=== PATIENT | male | born 1985 | race Caucasian/White ===

== ENCOUNTER → 2021-09-13 | Outpatient (CLI) | payer BC ==
--- NOTE | 2021-09-14 09:54 | MR ---
EXAMINATION TYPE: MR lumbar spine wo con DATE OF EXAM: 09/13/2021 COMPARISON: NONE HISTORY: Low back pain that is mostly on left side for one and a half years TECHNIQUE: Multiplanar, multisequence imaging of the lumbar spine is performed without IV contrast. FINDINGS: Sagittal images of the lumbar spine show vertebral body heights 2 appear satisfactory. Alig nment is stable and straightened. Multilevel disc desiccation and mild disc space narrowing with rela tive sparing of L3-L4 level. The conus medullaris is normal in position and signal ending L1-L2 disc space level. The bone marrow signal intensity is within normal limits. Axial images show T12-L1 and L1-L2 levels to appear within normal limits. Axial images at L2-L3 level show mild broad disc bulge mildly effacing the anterior thecal sac, paten t bilateral neural foramina. Axial images at L3-L4 level show focal central disc protrusion with annular tear minimally effacing a nterior thecal sac. Patent bilateral neural foramina. Axial images at the L4-L5 level shows central disc protrusion mildly effacing the anterior thecal sac and mild facet arthropathy bilaterally. The bilateral neural foramina are patent. Axial images at the L5-S1 level shows central spur disc complex minimally effacing anterior thecal sa c and mild facet arthropathy bilaterally. Patent bilateral neural foramina. The paraspinal muscle bulk is preserved. IMPRESSION: Straightening of lumbar spine with mild multilevel degenerative changes mid to lower lumb ar levels as detailed above.
== END | disposition home or self-care (01) ==
LOC: RADMRIMAIN 21:14
PROVIDERS: ATTEND Family Medicine
DX: M54.16 Radiculopathy, lumbar region (principal)
CPT/HCPCS: 72148

== ENCOUNTER 2022-08-01 05:54 | Day surgery (SDC) | payer BC ==
[2022-07-30 11:28] VITALS: BMI 30.7
[~2022-08-01 05:54] MED LIST: LACTATED RINGERS 1,000 ML IV SCH
[2022-08-01] MEDS ORDERED: LACTATED RINGERS 1,000 ML IV ONE (06:38)
[2022-08-01 06:59] VITALS: TEMP 98.1
[2022-08-01] MEDS ORDERED: PROPOFOL 10 MG/ML 20 ML VIAL IV ONE (07:00)
[2022-08-01] MEDS ORDERED: fentaNYL (PF) 50 MCG/ML 2 ML AMP ONE (07:00)
[2022-08-01] MEDS ORDERED: MIDAZOLAM 2 MG/2 ML VIAL ONE (07:00)
--- NOTE | 2022-08-01 07:25 | P.PCN ---
Date of Procedure: 08/01/22 Procedure(s) Performed: Brief history: Patient is a pleasant 36-year-old white male scheduled for an elective upper endoscopy as well as colonoscopy as a part of evaluation of epigastric pain, early satiety nausea and intermittent diarrhea for the last 1 year duration. Procedure performed: Esophagogastroduodenoscopy Colonoscopy Preoperative diagnosis: Epigastric pain/early satiety and nausea Change in bowel habits Anesthesia: MAC Procedure: After informed consent was obtained from the patient was brought into the endoscopy unit and IV sedation was administered by anesthesia under continuous monitoring. Initially upper endoscopy was done. The Olympus GF 160 video endoscope was inserted inserted into the mouth and esophagus intubated without any difficulty and was gradually advanced into the stomach and duodenum and carefully examined. The bulb and second part of the duodenum appeared normal. Biopsies were done from the duodenum to rule out celiac disease. The scope was then withdrawn into the stomach adequately insufflated with air and upon careful examination the antrum had mild gastritis and biopsies were done from this area. Mucosa of the body, cardia and fundus appeared normal. The scope was then withdrawn into the esophagus. The GE junction was located at 40 cm to the incisors. Small hiatal hernia noted. The GE junction appeared irregular and there were superficial erosions consistent with LA grade B reflux esophagitis. Rest of the esophagus appeared normal. Patient tolerated the procedure well. At this time the patient continued to remain sedation. Initial digital rectal examination was normal. Olympus CF 160 video colonoscope was then inserted into the rectum and gradually advanced to the cecum without any difficulty. Careful examination was performed as the scope was gradually being withdrawn. The prep was excellent. terminal ileum was intubated and visualized and appeared normal The cecum, ascending colon, transverse colon, descending colon, sigmoid colon and rectum appeared normal. Retroflexion was performed in the rectum and no lesions were noted. Patient tolerated the procedure well. Impression: 1. Upper endoscopy revealed mild antral gastritis, small hiatal hernia and LA grade B reflux esophagitis 2.colonoscopy was within normal limits with no evidence of colitis or colorectal neoplasia Recommendations: Findings of this examination were discussed with the patient as well as his family. He was advised to follow with the biopsy results. Advised to start on omeprazole 20 mg daily and follow antireflux measures. He can continue with dicyclomine as needed.
[2022-08-01 07:44] VITALS: BP 109/71; PULSE 67; RESP 20
== END 2022-08-01 08:23 | disposition home or self-care (01) ==
LOC: ORWHC2ENDO 05:54
PROVIDERS: ATTEND Internal Medicine Gastroenterology
DX: K21.00 Gastro-esophageal reflux disease with esophagitis, without bleeding (principal); K29.50 Unspecified chronic gastritis without bleeding; K44.9 Diaphragmatic hernia without obstruction or gangrene; R19.7 Diarrhea, unspecified; R68.81 Early satiety; Z88.5 Allergy status to narcotic agent; F12.90 Cannabis use, unspecified, uncomplicated
CPT/HCPCS: 45378; 88305; 88312; 43239; J2250; J3010; J2704